=== PATIENT | female | born 1975 | race Asian ===

== ENCOUNTER 2016-08-04 06:19 | Emergency (ER) | payer OTHER, SELFPAY ==
[~2016-08-04] VITALS: Ht 165.1 cm; Wt 68.2 kg
[~2016-08-04 06:19] MED LIST: RANI150T7 PO
[2016-08-04] MEDS ORDERED: ATEN25 PO (06:29)
[2016-08-04] MEDS ORDERED: METH5TAB7 PO (06:29)
[2016-08-04 08:04] VITALS: BP 156/93
== END 2016-08-04 08:52 | disposition home or self-care (01) ==
LOC: EMS 06:20
DX: I10 Essential (primary) hypertension (principal); G54.0 Brachial plexus disorders; K21.9 Gastro-esophageal reflux disease without esophagitis; R51 Headache; R20.0 Anesthesia of skin; R20.2 Paresthesia of skin
CPT/HCPCS: 70450; 99284